=== PATIENT | male | born 1980 | race Asian ===

== ENCOUNTER 2019-04-16 09:45 | Day surgery (SDC) | payer MEDICAID ==
[~2019-04-16] VITALS: Ht 162.6 cm; Wt 91.6 kg
[2019-04-16] MEDS ORDERED: DEXAMETHASONE SOD PHOSPHATE 4 MG/ML VIAL IVP ONE (12:30)
[2019-04-16] MEDS ORDERED: SEVOFLURANE 15 MIN GAS INH ONE (12:30)
[2019-04-16] MEDS ORDERED: OXYMETAZOLINE HCL 0.05% NASAL SPRAY NS ONE (12:30)
[2019-04-16] MEDS ORDERED: NS IRRIG SOLN 1000 ML IR ONE (12:30)
[2019-04-16] MEDS ORDERED: KETOROLAC TROMETHAMINE 30 MG VIAL IVP ONE (12:30)
[2019-04-16] MEDS ORDERED: fentaNYL CITRATE 250 MCG/5 ML AMP IV ONE (12:30)
[2019-04-16] MEDS ORDERED: ROCURONIUM BROMIDE 10 MG/ML (ZEMURON) IV ONE (12:30)
[2019-04-16] MEDS ORDERED: LR 1,000 ML IV.SOLN IV ONE (12:30)
[2019-04-16] MEDS ORDERED: PROPOFOL 200MG/ 20ML VIAL (DIPRIVAN) IV ONE (12:30)
[2019-04-16] MEDS ORDERED: MEPERIDINE HCL/PF 25 MG/ML DISP.SYRIN IVP PRN (13:00)
[2019-04-16] MEDS ORDERED: LR 1,000 ML IV SCH (13:00)
[2019-04-16] MEDS ORDERED: HYDROmorphone 1 MG INJ. 1 MG/ML AMPUL IVP PRN (13:00)
[2019-04-16] MEDS ORDERED: HYDROmorphone 2 MG/ML VIAL IVP PRN ×2 (13:00)
[2019-04-16 14:17] VITALS: BP_SYST 113
== END 2019-04-16 15:20 | disposition home or self-care (01) ==
LOC: SDS 09:45 → SMU 09:47 → SDS 15:20
PROVIDERS: ATTEND Otolaryngology
DX: H91.93 Unspecified hearing loss, bilateral (principal); H65.03 Acute serous otitis media, bilateral; H68.101 Unspecified obstruction of Eustachian tube, right ear; E03.9 Hypothyroidism, unspecified; E66.9 Obesity, unspecified; E78.00 Pure hypercholesterolemia, unspecified; E11.42 Type 2 diabetes mellitus with diabetic polyneuropathy; F17.210 Nicotine dependence, cigarettes, uncomplicated; Z79.82 Long term (current) use of aspirin
CPT/HCPCS: 69436; J1100; J1885; J2704; J3010; J7120; L8699

== ENCOUNTER 2020-03-17 06:10 | Day surgery (SDC) | payer MEDICAID, SELFPAY ==
[~2020-03-17] VITALS: Ht 162.6 cm; Wt 86.2 kg
[2020-03-17] MEDS ORDERED: ONDANSETRON HCL 4 MG/2 ML VIAL IVP PRN (09:45)
[2020-03-17] MEDS ORDERED: MIDAZOLAM HCL 2 MG/2 ML VIAL (VERSED) IVP PRN (09:45)
[2020-03-17] MEDS ORDERED: HYDROmorphone 1 MG INJ. 1 MG/ML AMPUL IVP PRN ×2 (09:45)
[2020-03-17] MEDS ORDERED: METOCLOPRAMIDE HCL 10 MG/2 ML VIAL IVP PRN (09:45)
[2020-03-17] MEDS ORDERED: LR 1,000 ML IV SCH (09:45)
[2020-03-17] MEDS ORDERED: hydrALAZINE HCL 20 MG/ML VIAL IVP PRN (09:45)
[2020-03-17] MEDS ORDERED: LABETALOL 100 MG/ 20ML VIAL IVP PRN (09:45)
[2020-03-17] MEDS ORDERED: MEPERIDINE HCL/PF 25 MG/ML DISP.SYRIN IVP PRN (09:45)
[2020-03-17] MEDS ORDERED: KETOROLAC TROMETHAMINE 30 MG VIAL ONE (10:50)
[2020-03-17] MEDS ORDERED: LIDOCAINE 2%, 20 ML MDV ONE (10:50)
[2020-03-17] MEDS ORDERED: fentaNYL CITRATE/PF 100 MCG/2 ML AMP ONE (10:50)
[2020-03-17] MEDS ORDERED: OXYMETAZOLINE HCL 0.05% NASAL SPRAY NS ONE (10:50)
[2020-03-17] MEDS ORDERED: DEXAMETHASONE SOD PHOSPHATE 4 MG/ML VIAL ONE (10:50)
[2020-03-17] MEDS ORDERED: CIPROFLOXACIN HCL 0.3% EYE DRP 2.5 ML DROPS ONE (10:50)
[2020-03-17] MEDS ORDERED: ONDANSETRON HCL 4 MG/2 ML VIAL ONE (10:50)
[2020-03-17] MEDS ORDERED: DESFLURANE 15 MIN GAS INH ONE (10:50)
[2020-03-17] MEDS ORDERED: PROPOFOL 200MG/ 20ML VIAL (DIPRIVAN) IV ONE (10:50)
[2020-03-17] MEDS ORDERED: LR 1,000 ML IV.SOLN IV ONE (10:50)
[2020-03-17] MEDS ORDERED: MIDAZOLAM HCL 5 MG/ML VIAL (VERSED) IV ONE (10:50)
[2020-03-17] MEDS ORDERED: SUGAMMADEX SODIUM 200 MG/2 ML VIAL IV ONE (10:50)
[2020-03-17 11:30] VITALS: BP_SYST 120
== END 2020-03-17 12:30 | disposition home or self-care (01) ==
LOC: SMU 06:10 → SDS 06:10
PROVIDERS: ATTEND Otolaryngology
DX: H65.93 Unspecified nonsuppurative otitis media, bilateral (principal); D38.5 Neoplasm of uncertain behavior of other respiratory organs; H65.03 Acute serous otitis media, bilateral; E78.00 Pure hypercholesterolemia, unspecified; J98.8 Other specified respiratory disorders; E11.42 Type 2 diabetes mellitus with diabetic polyneuropathy; H90.3 Sensorineural hearing loss, bilateral; J45.909 Unspecified asthma, uncomplicated; E03.9 Hypothyroidism, unspecified; I10 Essential (primary) hypertension; E66.9 Obesity, unspecified; Z79.899 Other long term (current) drug therapy; Z20.828 Contact with and (suspected) exposure to other viral communicable diseases
CPT/HCPCS: 42831; 69436; 82962; 88305; 88331; 88341; 88342; 88361; C9399; J1100; J1885; J2001; J2250; J2405; J2704; J3010; J7120; L8699; U0003